=== PATIENT | male | born 1990 | race African-American/Black ===

== ENCOUNTER 2016-05-30 12:39 | Emergency (ER) | payer SELFPAY ==
[~2016-05-30] VITALS: Ht 182.9 cm; Wt 75.0 kg
[2016-05-30 12:42] VITALS: BP 136/59; PULSE 88; RESP 20; TEMP 97.8; O2SAT 97
--- NOTE | 2016-05-30 13:37 | RADRPT ---
EXAM DATE/TIME: 05/30/2016 13:13 [place] COMPARISON: No previous studies available for comparison. INDICATIONS: Fracture, hurt [address] [facility]. MEDICAL HISTORY: None. SURGICAL HISTORY: None. ENCOUNTER: Initial ACUITY: 4 - 6 days PAIN SCORE: 5/10 LOCATION: Left ankle FINDINGS: There is a spiral fracture of the distal fibula that extends 4 cm above the tibial plafond. Alignmen t is anatomic. CONCLUSION: Spiral fracture distal fibula. Luis Glover MD FACR on May 30, 2016 at 13:32 Board Certified Radiologist. This report was verified electronically.
[2016-05-30] MEDS ORDERED: IBUP800T23 PO (13:52)
--- NOTE | 2016-05-30 13:52 | PD ---
HPI Chief Complaint: Injury Time Seen by Provider: 13:00 Travel History International Travel<30 days: No Contact w/Intl Traveler<30days: No Traveled to known affect area: No History of Present Illness HPI Patient is a 25-year-old male presenting to the emergency for evaluation of left ankle pain. Patient [place] on Saturday when he twisted his ankle. Since that time he is been unable to completely bear weight, he's had swelling to lateral aspect of his ankle. Patient has been ambulating with crutches since the injury occurred. He states the swelling has improved but he continues to have significant pain with ambulation. He denies any other complaints at this time. [facility] Past Medical History Medical History: Denies Significant Hx Diabetes: No Diminished Hearing: No Psychiatric: No Immunizations Current: Yes Social History Alcohol Use: No Tobacco Use: Yes Substance Use: Yes Allergies-Medications (Allergen,Severity, Reaction): Coded Allergies: No Known Allergies (Unverified , 05/30/16) Reported Meds & Prescriptions Reported Meds & Active Scripts Active No Active Prescriptions or Reported Medications Review of Systems Except as stated in HPI: all other systems reviewed are Neg Musculoskeletal: Positive: Myalgias, Arthralgias, Limited ROM, Edema, Pain Physical Exam Narrative GENERAL: Well-nourished, well-developed patient. SKIN: Warm and dry. HEAD: Normocephalic. EYES: No scleral icterus. No injection or drainage. NECK: Supple, trachea midline. No JVD or lymphadenopathy. CARDIOVASCULAR: Regular rate and rhythm without murmurs, gallops, or rubs. RESPIRATORY: Breath sounds equal bilaterally. No accessory muscle use. GASTROINTESTINAL: Abdomen soft, non-tender, nondistended. MUSCULOSKELETAL: No cyanosis, edema noted to the lateral aspect of the left ankle are moderately tender to palpation. Positive pedal pulses. Brisk less than 3 second capillary refill. BACK: Nontender without obvious deformity. No CVA tenderness. Data Data Last Documented VS Vital Signs Date Time Temp Pulse Resp B/P Pulse Ox O2 Delivery O2 Flow Rate FiO2 05/30/16 12:42 97.8 88 20 136/59 97 Room Air Orders Ankle, Complete ([id number]) (05/30/16 ) Splinting (05/30/16 ) MDM Medical Decision Making Medical Screen Exam Complete: Yes Emergency Medical Condition: Yes Interpretation(s) Vital Signs Date Time Temp Pulse Resp B/P Pulse Ox O2 Delivery O2 Flow Rate FiO2 05/30/16 12:42 97.8 88 20 136/59 97 Room Air Differential Diagnosis Fracture versus sprain versus dislocation versus Narrative Course Patient is a 25-year-old male presenting to emergency evaluation of left ankle pain after injuring it on a trampoline Saturday. Patient is neurovascularly intact. Imaging ordered. X-ray of the left ankle shows a spiral distal fibular fracture. Patient will be splinted, he already has crutches with him. Patient is advised to follow-up with an orthopedic surgeon. He is encouraged to return to emergency department for any new or worsening symptoms. Patient verbalizes understanding of these instructions. Patient is stable for discharge. Diagnosis Primary Impression: Fracture of distal end of fibula Qualified Code: S82.832A - Closed fracture of distal end of left fibula, unspecified fracture morphology, initial encounter Referrals: Orthopaedic Surgeon 1 week Patient Instructions: Ankle Fracture (ED), General Instructions Additional Instructions: Follow-up with orthopedic surgeon Rest, ice, elevate extremity Return to emergency department for any new or worsening symptoms Med/Other Pt SpecificInfo: Prescription(s) given Scripts Ibuprofen 800 Mg [id number] Mg PO Q6HR PRN (PAIN) #40 TAB Ref 0 Prov:Nina Moore 05/30/16 Disposition: 01 DISCHARGE HOME Condition: Stable Nina Moore May 30, 2016 13:52
== END 2016-05-30 14:26 | disposition home or self-care (01) ==
LOC: NEPB 12:39
DX: S82.832A Other fracture of upper and lower end of left fibula, initial encounter for closed fracture (principal); X50.0XXA Overexertion from strenuous movement or load, initial encounter; Y93.44 Activity, trampolining; Y92.39 Other specified sports and athletic area as the place of occurrence of the external cause
CPT/HCPCS: 29515; 73610